=== PATIENT | male | born 1990 | race Caucasian/White ===

== ENCOUNTER 2020-07-14 16:07 | Emergency (ER) | payer OTHER ==
[~2020-07-14] VITALS: Ht 182.9 cm; Wt 72.6 kg
[2020-07-14 16:10] VITALS: BP 123/85
--- NOTE | 2020-07-14 16:36 | Emergency Room Report ---
History of Present Illness General Chief Complaint: Skin Rash/Abscess Source: Patient Present Illness HPI 29 YO male presents to the ED c/o skin infection on the right side of his face and neck s/p picking/scratching that area after smoking and blacking out. Pt. reports hx of staph infections in the past which presented in similar fashion.He denies pain. Pt. denies fevers or chills. he denies swollen tender lymph nodes. He denies dental pain or oral pain/swelling. Pt. denies ear pain. Denies lesions/rashes elsewhere on the body. Denies new medications or body washes or creams. Denies swelling of the lips, tongue , throat or airway. Denies wheezing, or shortness of breath. Denies recent travel, recent illness or ill contacts. denies blisters, oral lesions, or sloughing of the skin. Pt. reports in the past when he had similar lesions and presentation he was treated for staph with two oral abx. Allergies: Coded Allergies: No Known Allergies (Unverified , 07/14/20) COVID-19 Screening Contact w/high risk pt: No Experienced COVID-19 symptoms?: No COVID-19 Testing performed AGING ROOM HAND: No Patient History Past Medical History: see triage record Past Surgical History: none Pertinent Family History: none Reviewed Nursing Documentation: PMH: Agreed; PSxH: Agreed Nursing Documentation-PMH Past Medical History: No Stated History Review of Systems All Other Systems: negative except mentioned in HPI Physical Exam Vital Signs Date Time Temp Pulse Resp B/P (MAP) Pulse Ox O2 Delivery O2 Flow Rate FiO2 07/14/20 16:10 97.9 105 18 123/85 (98) 95 Room Air Sp02 EP Interpretation: reviewed, normal General Appearance: no apparent distress, alert, GCS 15, non-toxic Head: normocephalic, atraumatic Eyes: bilateral eye normal inspection, bilateral eye PERRL ENT: hearing grossly normal, normal voice, other - no oral or eye involvement. Neck: full range of motion, no meningismus, no bony tend, other - scabbed excoriations with surrounding erythema on the right side of the face and neck. NO LAD. No stridor Respiratory: chest non-tender, lungs clear, normal breath sounds, no wheezing, speaking full sentences Cardiovascular #1: regular rate, rhythm, no edema, normal capillary refill Musculoskeletal: normal range of motion, gait/station normal, non-tender Neurologic: alert, motor strength/tone normal, oriented x3, sensory intact, responsive, speech normal Psychiatric: judgement/insight normal Skin: rash - excoriations with surrounding erythema, warmth, and crusting on the right side of the neck, cheek and chin. No blisters or vesicles. No oral lesions Lymphatic: no adenopathy Medical Decision Making PA Attestation Dr. Bains is my supervising Physician whom patient management has been discussed with. Diagnostic Impression: Primary Impression: Cellulitis Qualified Codes: L03.211 - Cellulitis of face Additional Impression: Rash and other nonspecific skin eruption ER Course 29 YO male presents to the ED c/o skin infection on the right side of his face and neck s/p picking/scratching that area after smoking and blacking out. Pt. reports hx of staph infections in the past which presented in similar fashion.He denies pain. Pt. denies fevers or chills. he denies swollen tender lymph nodes. He denies dental pain or oral pain/swelling. Pt. denies ear pain. Denies lesions/rashes elsewhere on the body. Denies new medications or body washes or creams. Denies swelling of the lips, tongue , throat or airway. Denies wheezing, or shortness of breath. Denies recent travel, recent illness or ill contacts. denies blisters, oral lesions, or sloughing of the skin. Pt. reports in the past when he had similar lesions and presentation he was treated for staph with two oral abx. Ddx considered but are not limited to cellulitis, Necrotizing fasciitis, allergic reaction, burn, dermatitis, fracture, d/L, gout, LAD, Abscess, Tonsillitis Vital signs: are WNL, pt. is afebrile H&PE are most consistent with excoriations of the right side of the face and neck with secondary bacterial infection indicated by surrounding erythema, warmth, and crusting. No evidence of acute impending airway compromise, or respiratory distress. No stridor. ORDERS: none required at this time, the diagnosis is clinical ED INTERVENTIONS: None required at this time. -D/w pt. to limit scratching and picking. DISCHARGE: At this time pt. is stable for d/c to home. Will provide printed patient care instructions, and any necessary prescriptions. Care plan and follow up instructions have been discussed with the patient prior to discharge. Last Vital Signs Date Time Temp Pulse Resp B/P (MAP) Pulse Ox O2 Delivery O2 Flow Rate FiO2 07/14/20 16:10 97.9 105 18 123/85 95 Room Air Disposition: HOME, SELF-CARE Condition: Stable Scripts Mupirocin* (MUPIROCIN*) 22 Gm Oint...g. 1 APPLIC TOPIC THREE TIMES A DAY, #22 GM Prov: Concetta Green 07/14/20 Trimethoprim/Sulfamethoxazole 160/800* (BACTRIM DS TABLET*) 1 Each Tablet 1 TAB ORAL TWICE A DAY for 7 Days, #14 TAB Prov: Concetta Green 07/14/20 Cephalexin* (KEFLEX*) 500 Mg Capsule 500 MG ORAL EVERY 12 HOURS for 7 Days, #14 CAP 0 Refills Prov: Concetta Green 07/14/20 Referrals: Lavonne Galeano [facility]. [facility] + [facility] Patient Instructions: Cellulitis Additional Instructions: Take medications as directed. Follow up with a Primary Care Provider in 3-5 days, even if your symptoms have resolved. --Please review list of primary care clinics, if you do not already have a primary care provider Return sooner to ED if new symptoms occur, or current symptoms become worse. - Please note that this Emergency Department Report was dictated using [email or web address] technology software, occasionally this can lead to erroneous entry secondary to interpretation by the dictation equipment. Concetta Green Jul 14, 2020 16:36
[2020-07-14] MEDS ORDERED: MUPIROCIN22 GM TOPIC (16:59)
[2020-07-14] MEDS ORDERED: CEPHALEXIN500 MG ORAL (16:59)
[2020-07-14] MEDS ORDERED: BACTRIM DS TAB1 EAC1 ORAL (16:59)
[2020-07-14 17:17] VITALS: BP 135/82
--- NOTE | 2020-07-14 17:17 | NUR ---
ER DISCHARGE NOTE: Patient was seen due to skin redness and irritation. Pt is cleared to be discharged per PA, pt is aox4, on room air, with stable vital signs. pt was given dc and prescription instructions, pt was able to verbalize understanding, pt id band removed. pt is able to ambulate with steady gait. pt took all belongings.
== END 2020-07-14 17:17 | disposition home or self-care (01) ==
LOC: EMR 16:50
DX: L03.211 Cellulitis of face (principal)
CPT/HCPCS: 99282